=== PATIENT | female | born 1965 | race Caucasian/White ===

== ENCOUNTER 2019-04-28 09:17 | Emergency (ER) | payer MEDICAID ==
[~2019-04-28] VITALS: Ht 157.5 cm; Wt 70.3 kg
[~2019-04-28 09:17] MED LIST: NO HOME MEDS
[2019-04-28 09:21] VITALS: BP 134/82
[2019-04-28] MEDS ORDERED: diphenhydrAMINE 25mg capsule PO ONE (10:25)
[2019-04-28] MEDS ORDERED: dexamethasone 4mg tablet PO ONE (10:25)
[2019-04-28] MEDS ORDERED: AZEL6DRO OP (10:28)
[2019-04-28] MEDS ORDERED: HYDR28CR14 TOP (10:28)
== END 2019-04-28 10:44 | disposition home or self-care (01) ==
LOC: ER 09:18
DX: H10.13 Acute atopic conjunctivitis, bilateral (principal)
CPT/HCPCS: 99283; Q0163

== ENCOUNTER 2020-09-19 12:30 | Outpatient (CLI) | payer MEDICAID ==
[~2020-09-19 12:30] MED LIST changes: +AZEL6DRO OP; +HYDR28CR14 TOP
== END 2020-09-19 23:59 | disposition home or self-care (01) ==
LOC: CARD DIAG 12:30
PROVIDERS: ATTEND Internal Medicine Hematology
DX: C50.311 Malignant neoplasm of lower-inner quadrant of right female breast (principal)
CPT/HCPCS: 93306

== ENCOUNTER 2024-01-17 13:58 | Emergency (ER) | payer MEDICAID ==
[~2024-01-17] VITALS: Ht 154.9 cm; Wt 81.4 kg
[2024-01-17 14:11] VITALS: BP 147/89; PULSE 88; RESP 16; TEMP 98; O2SAT 97
[2024-01-17] MEDS ORDERED: CLOT15CR73 TOP (15:26)
== END 2024-01-17 15:42 | disposition home or self-care (01) ==
LOC: ER 13:58
DX: B35.6 Tinea cruris (principal); Z79.899 Other long term (current) drug therapy
CPT/HCPCS: 99283